=== PATIENT | female | born 1995 | race African-American/Black ===

== ENCOUNTER 2023-05-25 20:24 | Emergency (ER) | payer BC, MEDICAID, OTHER ==
[~2023-05-25] VITALS: Ht 160 cm; Wt 90.0 kg
[2023-05-25 20:28] VITALS: O2SAT 100
[2023-05-25 23:48] LABS: BASOPHILS % 0.5 % (0.0-2.0); EOSINOPHILS % 2.4 % (0.0-5.0); HEMATOCRIT. 36.9 % (36.0-48.0); HEMOGLOBIN. 12.1 g/dL (12.0-16.0); LYMPHOCYTES % 25.5 % (20.0-50.0); MEAN CORPUSCULAR HEMOGLOBIN 28.7 pg (28.0-32.0); MEAN CORPUSCULAR VOLUME 87.4 fL (81.0-99.0); MEAN PLATELET VOLUME 7.8 fl (7.4-10.4); MONOCYTES % 6.7 % (2.0-8.0); NEUTROPHILS % 64.9 % (40.0-76.0); PLATELET 349 x1000/uL (130-400); RED BLOOD CELL COUNT 4.22 mill/uL (4.2-5.4); RED CELL DISTRIBUTION WIDTH 13.3 % (11.6-14.6)
[2023-05-25 23:50] LABS: CLARITY URINE CLEAR (CLEAR); COLOR URINE YELLOW (YELLOW); KETONES URINE NEGATIVE (NEGATIVE); LEUKOCYTE ESTERASE URINE NEGATIVE (NEGATIVE); NITRITE URINE NEGATIVE (NEGATIVE); OCCULT BLOOD URINE NEGATIVE (NEGATIVE); PROTEIN URINE NEGATIVE (NEGATIVE); SPECIFIC GRAVITY URINE 1.019 (1.005-1.030)
[2023-05-25 23:54] LABS: CHLORIDE 105 mEq/L (98-107)
[2023-05-26] MEDS ORDERED: KETOROLAC 60MG/2ML VIAL IM ONE (00:30)
[2023-05-26] MEDS ORDERED: IBUP-2028 MT (00:34)
[2023-05-26 01:00] VITALS: BP 136/86
[2023-05-26] MEDS ORDERED: IBUPROFEN 400MG TABLET PO ONE (01:00)
[2023-05-26 01:56] VITALS: PULSE 61; RESP 16; TEMP 98.6
== END 2023-05-26 01:56 | disposition home or self-care (01) ==
LOC: ER 20:24
DX: R51.9 Headache, unspecified (principal); R11.2 Nausea with vomiting, unspecified; F12.10 Cannabis abuse, uncomplicated
CPT/HCPCS: 80053; 81003; 81025; 85025; 36415; 99283; J1885; Z7610